=== PATIENT | female | born 1990 | race Two or more races ===

== ENCOUNTER 2019-10-10 11:09 | Observation (INO) | payer MEDICAID, OTHER ==
[~2019-10-10] VITALS: Ht 160 cm; Wt 75.7 kg
[2019-10-10 14:06] VITALS: BP 101/55
[2019-10-10 14:14] LABS: Urine Bacteria MOD /hpf (None Seen); Urine Blood Negative /uL (Negative); Urine Mucus FEW (None Seen); Urine Specific Gravity 1.018 (1.001-1.035); Urine WBC 5 /hpf (0 - 5)
[2019-10-10 14:32] LABS: Basophils # (auto) 0 10 ^3/uL (0-0.2); Basophils % (auto) 0.3 % (0.0-2.0); Eosinophils # (auto) 0.2 10 ^3/uL (0-0.8); Eosinophils % (auto) 1.2 % (0.0-7.0); Hematocrit 39.2 % (36.0-46.0); Hemoglobin 12.9 g/dL (12.2-16.2); Lymphocytes # (auto) 1.9 10 ^3/uL (0.4-5.4); Lymphocytes % (auto) 12.2 % (10.0-50.0); Mean Corpuscular Hgb Conc. 32.8 g/dL (32.0-36.0); Mean Corpuscular Volume 91.3 fL (80.0-100.0); Monocytes # (auto) 0.6 10 ^3/uL (0-1.3); Monocytes % (auto) 4.2 % (0.0-12.0); Neutrophils # (auto) 12.6 10 ^3/uL (1.6-8.6); Neutrophils % (auto) 82.1 % (37.0-80.0); Platelet Count (auto) 319 10^3/uL (140-450); Red Blood Cells 4.29 10^6/uL (4.0-5.20); Red Cell Distribution Width 12.8 % (11.8-14.3); White Blood Cell 15.4 10^3/uL (4.4-10.8)
[2019-10-10 14:58] LABS: Albumin 2.9 g/dL (3.4-5.0); BUN/Creatinine Ratio 11.7; Calcium 8.6 mg/dL (8.5-10.1); Potassium 3.7 mmol/L (3.5-5.1)
[2019-10-10 15:00] LABS: Bilirubin, Total 0.4 mg/dL (0.2-1.0); Total Protein 6.9 g/dL (6.4-8.2)
== END 2019-10-10 15:50 | disposition other institution (70) | DRG 566 ==
LOC: ER 11:09 → LDRP 11:35 → UNDODEPER 13:39 → LDRP 15:50
PROVIDERS: ADMIT Specialist; ATTEND Specialist
DX: O26.893 Other specified pregnancy related conditions, third trimester (principal); R10.31 Right lower quadrant pain; Z3A.30 30 weeks gestation of pregnancy
CPT/HCPCS: 36415; 59025; 76705; 80053; 81001; 85025; 99284; G0378